=== PATIENT | male | born 1940 | race African-American/Black ===

== ENCOUNTER 2021-08-08 13:14 | Emergency (ER) | payer MEDICARE ==
[~2021-08-08] VITALS: Ht 177.8 cm; Wt 66.2 kg
[2021-08-08 14:01] LABS: ABSOLUTE NEUTROPHILS 2.3 thou/uL (1.4-8.2); BASOPHILS 0.9 % (0.0-2.0); EOSINOPHILS 4.4 % (0.0-3.0); HEMATOCRIT 34.5 % (42.0-52.0); HEMOGLOBIN 11.1 gm/dL (14.0-18.0); LYMPHOCYTES 25.9 % (24.0-44.0); MCH 31.4 pg (26.0-34.0); MCHC 32.3 g/dL (28.0-37.0); MCV 96.9 fL (80.0-100.0); MONOCYTES 13.4 % (1.0-8.0); PLATELET COUNT 169 thou/uL (150-400); POLYS 55.4 % (36.0-66.0); RBC 3.55 mil/uL (4.50-6.00); RDW 15.3 % (10.5-14.5); WBC 4.2 thou/uL (4.0-11.0)
[2021-08-08 14:13] LABS: CALCIUM 8.3 mg/dL (8.5-10.1); CREATININE 1.2 mg/dL (0.7-1.3); POTASSIUM 3.6 mmol/L (3.5-5.1)
[2021-08-08 14:52] LABS: AMP/METHAMP Negative (Negative); BARBITURATES Negative (Negative); BENZODIAZEPINES Negative (Negative); COCAINE Negative (Negative); METHADONE Negative (Negative); OPIATES Negative (Negative); PCP Negative (Negative)
[2021-08-08 17:04] VITALS: BP 140/73
[2021-08-08] MEDS ORDERED: COLACE100 MG PO (17:04)
--- NOTE | 2021-08-09 09:23 | EKG ---
[place] [address] [facility] [place] [address] ELECTROCARDIOGRAM REPORT Name: NESTOR BENDER Room #: JAQUAN Barron#: [id number] Admission: 08/08/21 Attend Phys: Discharge: 08/08/21 Date of : 40 Report #: [id number] [facility] ED Test Date: 2021-08-08 Test Time: 13:43:06 Pat Name: NESTOR BENDER Department: Room: Gender: M Wet Wheeler: PEDRO : 1940 Requested By: Elijah Weldon Order Number: [id number] MD: Khurram Bowen Measurements Intervals [place] Rate: 76 P: AR: QRS: 10 QRSD: 87 T: -45 QT: 459 QTc: 517 Interpretive Statements Artifact, NSR Anteroseptal infarct, old Borderline T abnormalities, inferior leads Prolonged QT interval No previous ECG available for comparison Electronically Signed On 08-09-2021 9:22:40 CDT by Khurram Bowen [email or web address] <ELECTRONICALLY SIGNED> By: Khurram Bowen MD, [facility] 08/09/21 0922 1343 1343 Khurram Bowen MD, FACC /EPI
[2021-08-09 12:34] LABS: URINE BILIRUBIN NEGATIVE (Negative); URINE BLOOD NEGATIVE (Negative); URINE CLARITY CLOUDY; URINE COLOR YELLOW; URINE GLUCOSE-RANDOM* NEGATIVE (Negative); URINE KETONES TRACE (Negative); URINE LEUKOCYTES-REFLEX NEGATIVE (Negative); URINE NITRITE-REFLEX NEGATIVE (Negative); URINE PROTEIN (DIPSTICK) NEGATIVE (Negative); URINE SPECIFIC GRAVITY 1.025 (1.005-1.035); URINE UROBILINOGEN 0.2 E.U./dl (0.2-1.0)
== END 2021-08-08 17:04 | disposition home or self-care (01) ==
LOC: ER 13:14
PROVIDERS: Nurse Practitioner
DX: K56.41 Fecal impaction (principal); Z20.822 Contact with and (suspected) exposure to COVID-19; K62.4 Stenosis of anus and rectum